=== PATIENT | female | born 1955 | race Caucasian/White ===

== ENCOUNTER → 2021-07-14 | Outpatient (CLI) | payer OTHER ==
[~2021-07-14] MED LIST: ACET-1600 PO; AMIT25TA PO; CHOL10003 PO; CYAN500011 PO; ESTR1TAB15 PO; MEGE20TA3 PO; OMEP-110 PO
== END | disposition home or self-care (01) ==
LOC: STAR 14:13
PROVIDERS: ATTEND Obstetrics & Gynecology Female Pelvic Medicine and Reconstructive Surgery
DX: Z01.812 Encounter for preprocedural laboratory examination (principal); Z20.822 Contact with and (suspected) exposure to COVID-19
CPT/HCPCS: 36415; 87635; 93005

== ENCOUNTER 2021-07-19 07:27 | Day surgery (SDC) | payer OTHER ==
[~2021-07-19] VITALS: Ht 160 cm; Wt 83.4 kg
[2021-07-19 07:58] VITALS: BP 113/77
== END 2021-07-19 16:55 | disposition home or self-care (01) ==
LOC: OUT 07:27
PROVIDERS: ATTEND Obstetrics & Gynecology Female Pelvic Medicine and Reconstructive Surgery
DX: N93.8 Other specified abnormal uterine and vaginal bleeding (principal); N94.12 Deep dyspareunia; N73.6 Female pelvic peritoneal adhesions (postinfective); Z98.51 Tubal ligation status; Z90.49 Acquired absence of other specified parts of digestive tract
CPT/HCPCS: 58552; 88307; J0171; J1885; J2250; J2405; J2704; J2800; J3010; J7120; S2900